=== PATIENT | male | born 1970 | race Asian ===

== ENCOUNTER → 2016-11-24 | Outpatient (CLI) | payer OTHER ==
--- NOTE | 2016-11-24 10:56 | DX ---
Upper GI Series With Air Contrast at 0900 hours History: Epigastric abdominal pain. R10.13 Technique: Air and barium double-contrast views of the esophagus and upper gastrointestinal tract. Fluoroscopy time: 2.4 minutes. Dose 54.7 mGy. Findings: Esophagus demonstrates normal swallowing function without evidence of strictures, ulceratio ns, obstruction, or hiatal hernia. Mild gastroesophageal reflux during fluoroscopy. Diffuse thickenin g of the gastric folds. Gastric mucosa demonstrates no evidence of ulcerations or deformity. Duodenal bulb demonstrates no ul cerations or deformity. Duodenal sweep is in normal position. Impression: 1. Mild gastroesophageal reflux. 2. No hiatal hernia or esophageal strictures. 3. Diffuse thickening of the gastric folds suggesting gastritis without definite focal ulcerations. [4]. No peptic ulcer disease. [5]. No evidence of gastric outlet obstruction.
== END ==
LOC: EEVIPCON 08:35 → FIMAGING 08:35
PROVIDERS: ATTEND Physician Assistant
DX: R10.13 Epigastric pain (principal)

== ENCOUNTER → 2017-01-01 | Outpatient (CLI) | payer OTHER | LOC: BMCIMAGING 08:25 | PROVIDERS: ATTEND Physician Assistant | DX: M25.522 Pain in left elbow (principal) ==